=== PATIENT | female | born 1985 | race Caucasian/White ===

== ENCOUNTER 2017-10-28 07:15 | Inpatient (IN) | payer OTHER ==
[2017-10-28] MEDS: DEXTROSE 5%-LACTATED RINGERS 1,000 ML IV SCH (07:45)
[2017-10-28 07:56] LABS: BASO % 0.2 % (0-2.0); EOS % 0.3 % (0-4.5); HEMATOCRIT 39.9 % (32.4-45.2); HEMOGLOBIN 13.2 GM/dL (10.7-15.3); LYMPH % 20.8 % (8-40); MCH 26.8 pg (25.7-33.7); MEAN CELL VOLUME 81.2 fl (80-96); MEAN PLT VOLUME 10.3 fl (7.5-11.1); MONO % 4.4 % (3.8-10.2); NEUT % 74.3 % (42.8-82.8); PLATELET COUNT 191 K/MM3 (134-434); RBC 4.91 M/mm3 (3.60-5.2); RDW 15.1 % (11.6-15.6); WHITE BLOOD COUNT 9.6 K/mm3 (4.0-10.0)
[2017-10-28 08:10] LABS: ANION GAP 8 (8-16); BLOOD UREA NITROGEN 18 mg/dL (7-18); CALCIUM 8.3 mg/dL (8.5-10.1); CHLORIDE 108 mmol/L (98-107); CO2 22 mmol/L (21-32); CREATININE 0.6 mg/dL (0.55-1.02); GLUCOSE,RANDOM 94 mg/dL (74-106); POTASSIUM 4.5 mmol/L (3.5-5.1); SODIUM 138 mmol/L (136-145)
[2017-10-28 08:20] LABS: INR 0.94 (0.82-1.09); PROTHROMBIN TIME (PATIENT) 10.6 SEC (9.98-11.88)
[2017-10-28 08:23] LABS: ACTIVATED PTT 26.9 SECONDS (26.9-34.4)
--- NOTE | 2017-10-28 08:28 | HP ---
Past Medical History - Primary Care Physician PCP:: Luciano Mauro - Admission Chief Complaint: 39 weeks, labor History of Present Illness: 32 yo f , edc by sono 11/04 17 39 weeks, c/o of contractions, cx 4cm, 80 vx -2 mi, fhr cat 1, irregular contraction, History Source: Patient Limitations to Obtaining History: Language Barrier - Past Medical History ...: 3 ...Para: 2 ...Term: 2 ...Spon : 0 ...Induced : 0 ...EDC by Dates: 11/04/17 ...EDC by Sono: 11/04/17 Heme/Onc: Yes: Anemia - Past Surgical History Hx Myomectomy: No Hx Transabdominal Cerclage: No - Smoking History Have you smoked in the past 12 months: No - Alcohol/Substance Use Hx Alcohol Use: No - Social History Usual Living Arrangement: Yes: With Spouse History of Recent Travel: No Home Medications - Allergies Allergies/Adverse Reactions: Allergies Allergy/AdvReac Type Severity Reaction Status Date / Time No Known Allergies Allergy Verified 10/28/17 07:25 - Home Medications Home Medications: Ambulatory Orders Ferrous Sulfate [Iron] 325 mg PO DAILY 10/27/17 Vit Calc,Iron,Folic [ Vitamins] 1 each PO DAILY 10/27/17 Review of Systems - Review of Systems Constitutional: reports: No Symptoms Eyes: reports: No Symptoms HENT: reports: No Symptoms Neck: reports: No Symptoms Cardiovascular: reports: No Symptoms Respiratory: reports: No Symptoms Gastrointestinal: reports: No Symptoms Genitourinary: reports: No Symptoms Breasts: reports: No Symptoms Reported Musculoskeletal: reports: No Symptoms Integumentary: reports: No Symptoms Neurological: reports: No Symptoms Endocrine: reports: No Symptoms Hematology/Lymphatic: reports: No Symptoms Psychiatric: reports: No Symptoms Physical Exam - Maternity Constitutional: Yes: Well Nourished, No Distress, Calm Eyes: Yes: WNL, Conjunctiva Clear, EOM Intact HENT: Yes: WNL, Atraumatic, Normocephalic Neck: Yes: WNL, Supple, Trachea Midline Cardiovascular: Yes: WNL, Regular Rate and Rhythm Breast(s): Yes: WNL - Abdominal Exam/OB Fundal Height: 40 Number of Fetuses: Single Presentation: Vertex Contractions: Yes Regularity: Irregular Intensity: Moderate Monitor Mode: External Heart Rate [facility]: [facility] Category: I Accelerations: Uniform Decelerations: None - Vaginal Exam/OB Vaginal Bleediing: No Amniotic Membrane Status: Intact Presentation: Vertex/Position Station: -2 - Physical Exam Musculoskeletal: Yes: WNL Extremities: Yes: WNL Edema: LLE: Trace, RLE: Trace Deep Tendon Reflex Grade: Normal +2 ...Motor Strength: WNL Psychiatric: Yes: WNL - Labs Lab Results: CBC, BMP 10/28/17 07:30 10/28/17 07:30 Hemorrhage Risk Assessment - Risk Factors Medium Risk Factors: Yes: Multiple gestation Risk Score: 1 Risk Level: Medium Risk Problem List - Problems (1) with 39 completed weeks gestation Code(s): Z3A.39 - 39 WEEKS GESTATION OF (2) First stage of labor established Code(s): XNG5704 - Assessment/Plan admit, fhm., pain management . pitocin stimulation, if irregular contraction
[2017-10-28] MEDS ORDERED: BUTORPHANOL TARTRATE 1 MG/ML VIAL IVPUSH ONE (08:31)
[2017-10-28] MEDS ORDERED: PROMETHAZINE HCL 25 MG/1 ML VIAL IVPUSH ONE (08:31)
[2017-10-28 08:34] VITALS: BMI 29.9
[2017-10-28] MEDS ORDERED: OXYTOCIN 30 UNITS in 0.9% NS 30 UNIT/500 ML INFUS.BAG IVPB SCH (08:45)
[2017-10-28] MEDS ORDERED: OXYTOCIN 30 UNITS in 0.9% NS 30 UNIT/500 ML INFUS.BAG IVPB ONE (08:53)
[2017-10-28] MEDS ORDERED: BUTORPHANOL TARTRATE 1 MG/ML VIAL ONE ×2 (13:50→13:51)
[2017-10-28] MEDS ORDERED: PROMETHAZINE HCL 25 MG/1 ML VIAL ONE (13:51)
[2017-10-28] MEDS ORDERED: OXYTOCIN 20 UNITS in 0.9% NS 20 UNIT/1,000 ML INFUS.BAG IV ONE (15:23)
--- NOTE | 2017-10-28 15:27 | PN ---
Progress Note (short form) - Note Progress Note: cx 8 cm, 100 vx 0 arom, clear ,fhr cat 1, contraction q 2 min Problem List - Problems (1) with 39 completed weeks gestation Code(s): Z3A.39 - 39 WEEKS GESTATION OF (2) First stage of labor established Code(s): EEH9357 -
[2017-10-28] MEDS ORDERED: BENZOCAINE 20% 57 GM BOTTLE TP PRN (17:10)
[2017-10-28] MEDS ORDERED: BISACODYL 10 MG SUPP.RECT RC PRN (17:10)
[2017-10-28] MEDS ORDERED: METHYLERGONOVINE MALEATE 0.2 MG/1 ML AMP IM PRN (17:10)
[2017-10-28] MEDS ORDERED: WITCH HAZEL 50% (TUCKS) 40 PAD/JAR PAD TP PRN (17:10)
[2017-10-28] MEDS ORDERED: BENZOCAINE 28 GM HEMORRHOIDAL OINTMENT TP PRN (17:10)
[2017-10-28] MEDS ORDERED: OXYTOCIN 20 UNITS in 0.9% NS 20 UNIT/1,000 ML INFUS.BAG IV SCH (17:15)
[2017-10-28] MEDS ORDERED: D5W-LR W/ 20 UNITS OXYTOCIN 1,000 ML IV SCH (17:15)
[2017-10-28] MEDS ORDERED: ACETAMINOPHEN 325 MG TABLET (FP) ONE (18:32)
[2017-10-28] MEDS ORDERED: IBUPROFEN 600 MG TABLET (FP) PO ONE (18:32)
[2017-10-28] MEDS: IBUPROFEN 600 MG TABLET (FP) PO PRN (18:36)
[2017-10-28] MEDS: FERROUS SO4 325 MG TABLET (FP) PO SCH (18:37)
[2017-10-28] MEDS: ACETAMINOPHEN 325 MG TABLET (FP) PO PRN (18:38)
--- NOTE | 2017-10-29 07:09 | PN ---
Post Progress Note - Subjective Subjective: 32 yo Para 3 status post vaginal delivery, seen and evaluated. Doing well. Post Day: 1 Type of Delivery: Vital Signs: Vital Signs Temperature 98.6 F 10/29/17 06:00 Pulse Rate 71 10/29/17 06:00 Respiratory Rate 18 10/29/17 06:00 Blood Pressure 115/65 10/29/17 06:00 O2 Sat by Pulse Oximetry (%) 100 10/28/17 18:35 Breast Exam: Yes: Soft Uterus: Yes: Fundus Firm Abdomen/GI: Yes: Abdomen soft, Tolerating PO Lochia: Yes: Rubra Lochia, amount: Moderate Extremities: Yes: Calves non-tender Perineum: Yes: Intact Activity: Ambulating - Labs Labs: CBC WBC 9.6 K/mm3 (4.0-10.0) 10/28/17 07:30 RBC 4.91 M/mm3 (3.60-5.2) D 10/28/17 07:30 Hgb 13.2 GM/dL (10.7-15.3) D 10/28/17 07:30 Hct 39.9 % (32.4-45.2) D 10/28/17 07:30 MCV 81.2 fl (80-96) 10/28/17 07:30 MCH 26.8 pg (25.7-33.7) 10/28/17 07:30 MCHC 33.0 g/dl (32.0-36.0) 10/28/17 07:30 RDW 15.1 % (11.6-15.6) 10/28/17 07:30 Plt Count 191 K/MM3 (134-434) 10/28/17 07:30 MPV 10.3 fl (7.5-11.1) 10/28/17 07:30 Neutrophils % 74.3 % (42.8-82.8) 10/28/17 07:30 Lymphocytes % 20.8 % (8-40) 10/28/17 07:30 Monocytes % 4.4 % (3.8-10.2) 10/28/17 07:30 Eosinophils % 0.3 % (0-4.5) 10/28/17 07:30 Basophils % 0.2 % (0-2.0) 10/28/17 07:30 Problem List - Problems (1) Status post normal vaginal delivery Code(s): [id number] - Assessment/Plan Status post vaginal delivery Stable Continue routine care
[2017-10-29] MEDS: ACETAMINOPHEN 325 MG TABLET (FP) PO PRN ×3 (07:56→20:47)
[2017-10-29] MEDS: FERROUS SO4 325 MG TABLET (FP) PO SCH ×2 (07:56→17:10)
[2017-10-29] MEDS: IBUPROFEN 600 MG TABLET (FP) PO PRN ×3 (07:57→20:46)
[2017-10-29 08:01] LABS: BASO % 0.2 % (0-2.0); EOS % 0.6 % (0-4.5); HEMOGLOBIN 10.9 GM/dL (10.7-15.3); LYMPH % 20.5 % (8-40); MCH 27.3 pg (25.7-33.7); MEAN CELL VOLUME 82.7 fl (80-96); MEAN PLT VOLUME 10.7 fl (7.5-11.1); MONO % 5.3 % (3.8-10.2); NEUT % 73.4 % (42.8-82.8); PLATELET COUNT 157 K/MM3 (134-434); RBC 3.98 M/mm3 (3.60-5.2); RDW 15.7 % (11.6-15.6); WHITE BLOOD COUNT 10.5 K/mm3 (4.0-10.0)
[2017-10-29] MEDS: DEXTROSE 5%-LACTATED RINGERS 1,000 ML IV SCH (09:26)
[2017-10-29] MEDS: PRENATAL VITAMINS W/ FOLIC ACID TABLET (FP) PO SCH (09:28)
[2017-10-29] MEDS ORDERED: SENNOSIDES/DOCUSATE COMBO (SENNA PLUS) TABLET (UD) PO PRN (22:00)
[2017-10-30] MEDS: FERROUS SO4 325 MG TABLET (FP) PO SCH (08:26)
[2017-10-30] MEDS: ACETAMINOPHEN 325 MG TABLET (FP) PO PRN ×2 (08:26→13:27)
[2017-10-30] MEDS: IBUPROFEN 600 MG TABLET (FP) PO PRN ×2 (08:26→13:27)
[2017-10-30 09:14] VITALS: BP 125/79; PULSE 66; TEMP 98.8
[2017-10-30] MEDS: PRENATAL VITAMINS W/ FOLIC ACID TABLET (FP) PO SCH (10:08)
--- NOTE | 2017-10-30 10:21 | DS ---
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: Vital Signs Temperature 98.8 F 10/30/17 09:05 Pulse Rate 66 10/30/17 09:05 Respiratory Rate 20 10/30/17 09:05 Blood Pressure 125/79 10/30/17 09:05 O2 Sat by Pulse Oximetry (%) 100 10/28/17 18:35 Constitutional: Yes: Well Nourished Eyes: Yes: Conjunctiva Clear HENT: Yes: Atraumatic Neck: Yes: Supple Cardiovascular: Yes: Regular Rate and Rhythm Respiratory: Yes: Regular Gastrointestinal: Yes: Normal Bowel Sounds External Genitalia: Yes: Normal Vaginal Exam: Yes: Normal Uterus: Yes: Normal ....Post : Yes: Uterus firm, Moderate lochia serosa Breast(s): Yes: WNL Neurological: Yes: Alert, Oriented ...Motor Strength: WNL Psychiatric: Yes: Alert, Oriented Labs: CBC, BMP 10/29/17 07:15 10/28/17 07:30 Delivery - Delivery Type of Anesthesia: Local Episiotomy/Laceration: 1st degree EBL (cc): 300 Delivery, Single - Stages of Labor Date 1st Stage Initiatied: 10/28/17 Time 1st Stage Initiated: 03:00 Date 2nd Stage Initiated: 10/28/17 Time 2nd Stage Initiated: 16:25 Date of Delivery: 10/28/17 Time of Delivery: 16:46 Time Placenta Delivered: 16:49 - 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 Gender: Female Weight: 6 lb 9 oz Position: Left, OA Total Hours ROM (Hrs/Mins): 1hr 31min - 1 Minute Total Score: 9 5 Minutes Total Score: 9 - [place] Feeding Plan Initial Plan: Elected not to breastfeed exclusively throughout hospitalization Discharge Summary Reason For Visit: LABOR Current Active Problems First stage of labor established (Acute) with 39 completed weeks gestation (Acute) Status post normal vaginal delivery (Acute) Procedures: Principal: Normal spontaneous vaginal delivery Hospital Course: Routine care Condition: Good - Instructions Diet, Activity, Other Instructions: Regular diet No douching, no sexual intercourse x 6 weeks F/U in clinic in 6 weeks Disposition: HOME - Home Medications Comprehensive Discharge Medication List: Ambulatory Orders Ferrous Sulfate [Iron] 325 mg PO DAILY 10/27/17 Vit Calc,Iron,Folic [ Vitamins] 1 each PO DAILY 10/27/17
== END 2017-10-30 14:10 | disposition home or self-care (01) | DRG 560 ==
LOC: JLDR 07:15 → J3W 19:30
PROVIDERS: ADMIT Obstetrics & Gynecology; ATTEND Obstetrics & Gynecology
PROC: 10E0XZZ Delivery of Products of Conception, External Approach (ICD-10-PCS; principal; 2017-10-28)
PROC: 0W8NXZZ Division of Female Perineum, External Approach (ICD-10-PCS; 2017-10-28)
PROC: 0HQ9XZZ Repair Perineum Skin, External Approach (ICD-10-PCS; 2017-10-28)
DX: O70.0 First degree perineal laceration during delivery (principal); Z3A.39 39 weeks gestation of pregnancy; Z37.0 Single live birth
CPT/HCPCS: 36415; 59409; 80048; 85025; 85610; 85730; 86593; 86850; 86900; 86901

== ENCOUNTER 2018-03-03 06:10 | Day surgery (SDC) | payer OTHER ==
[2018-03-03 06:26] VITALS: BMI 26.2
--- NOTE | 2018-03-03 06:30 | PDOC ---
History of Present Illness - General Stated Complaint: ABD PAIN Time Seen by Provider: 03/03/18 06:21 - History of Present Illness Initial Comments: 03/03/18 06:25 CHIEF COMPLAINT: abdominal pain HISTORY OF PRESENT ILLNESS: 33 yo F (recently delivered Oct 2017) presents to ED with abdominal pain radiating to back since 5 am. Patient reports normal bowel movement this morning. Denies fever, chills, nausea, vomiting, diarrhea. LMP earlier this month. Denies any urinary pain, frequency, or bleeding. PAST MEDICAL HISTORY: hx of gall stones FAMILY HISTORY: Denies SOCIAL HISTORY: Denies tobacco, alcohol, illicit drug use. SURGICAL HISTORY: Denies ALLERGIES: meperidine REVIEW OF SYSTEMS General/Constitutional: Denies fever or chills. Denies weakness, weight change. HEENT: Denies change in vision. Denies ear pain or discharge. Denies sore throat. Cardiovascular: Denies chest pain or shortness of breath. Respiratory: Denies cough, wheezing, or hemoptysis. Gastrointestinal: Abdominal pain since this morning. Denies nausea, vomiting, diarrhea or constipation. Denies rectal bleeding. Genitourinary: Denies dysuria, frequency, or change in urination. Musculoskeletal: Denies joint or muscle swelling or pain. Denies neck or back pain. Skin and breasts: Denies rash or easy bruising. PHYSICAL EXAM General Appearance: Well-appearing, appropriately dressed. No apparent distress. HEENT: EOMI, PERRLA, normal ENT inspection, normal voice, TMs normal, pharynx normal. No conjunctival pallor. No photophobia, scleral icterus. Respiratory/Chest: Lungs CTAB. No shortness of breath, chest tenderness, respiratory distress, accessory muscle use. No crackles, rales, rhonchi, stridor , wheezing, dullness Cardiovascular: RRR. S1, S2. Gastrointestinal/Abdominal: Tenderness to RUQ and epigastrum. Normal bowel sounds. Abdomen soft, non-distended. No organomegaly, pulsatile mass, guarding , hernia, hepatomegaly, splenomegaly. Musculoskeletal/Extremities: Normal inspection. FROM of all extremities, normal capillary refill. Pelvis Stable. No CVA tenderness. No tenderness to extremities, pedal edema, swelling, erythema or deformity. Integumentary: Appropriate color, dry, warm. 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 Fully oriented, alert. Appropriate mood/affect. Motor strength 5/5. No appreciable EOM palsy, facial droop or sensory deficit. Past History - Past Medical History Allergies/Adverse Reactions: Allergies Allergy/AdvReac Type Severity Reaction Status Date / Time meperidine [From Demerol] Allergy Intermediate Verified 03/03/18 06:26 Home Medications: Ambulatory Orders Ferrous Sulfate [Iron] 325 mg PO DAILY 10/27/17 Vit Calc,Iron,Folic [ Vitamins] 1 each PO DAILY 10/27/17 Ibuprofen [Motrin -] 400 mg PO QID PRN #120 tablet 03/04/18 Asthma: No Cancer: No Cardiac Disorders: No COPD: No Diabetes: No GI Disorders: Yes (gallstones) HTN: No Seizures: No Thyroid Disease: No - Suicide/Smoking/Psychosocial Hx Smoking History: Never smoked Have you smoked in the past 12 months: No Hx Alcohol Use: No Drug/Substance Use Hx: No Hx Substance Use Treatment: No ED Treatment Course - LABORATORY CBC & Chemistry Diagram: 03/04/18 06:40 03/04/18 06:40 Medical Decision Making - Medical Decision Making 03/03/18 06:29 33 yo F presents to ED with abdominal pain radiating to back. -labs, urine 03/03/18 06:30 Case discussed in detail with oncoming emergency provider including history, physical exam and ancillary studies. In brief, this patient is being seen in the ED for a chief complaint of: I have completed the initial assessment interview note and have ordered the following labs: CBC, CMP, lipase, urine, US I have reviewed the following results: nothing Pending results: everything Plan for disposition as follows: pending Oncoming BEATRIZ Samuel has assumed care for the patient and will complete the evaluation and treatment. *DC/Admit/Observation/Transfer Diagnosis at time of Disposition: Biliary colic, Elevated liver enzymes - Discharge Dispostion Disposition: HOME Condition at time of disposition: Improved - Prescriptions - Referrals - Patient Instructions - Post Discharge Activity
--- NOTE | 2018-03-03 06:35 | PDOC ---
*Physical Exam - Vital Signs Last Vital Signs Temp Pulse Resp BP Pulse Ox 98.2 F 76 18 121/86 100 03/03/18 06:20 03/03/18 06:20 03/03/18 06:20 03/03/18 06:20 03/03/18 06:20 ED Treatment Course - LABORATORY CBC & Chemistry Diagram: 03/04/18 06:40 03/04/18 06:40 Medical Decision Making - Medical Decision Making 03/03/18 06:34 agree with care from LARISA Hope *DC/Admit/Observation/Transfer Diagnosis at time of Disposition: Biliary colic, Elevated liver enzymes - Discharge Dispostion Disposition: HOME Condition at time of disposition: Improved - Prescriptions - Referrals - Patient Instructions - Post Discharge Activity
[2018-03-03 06:48] LABS: BASO % 0.5 % (0-2.0); EOS % 2.3 % (0-4.5); HEMOGLOBIN 13.2 GM/dL (10.7-15.3); LYMPH % 31.8 % (8-40); MCH 27.9 pg (25.7-33.7); MCHC 34.6 g/dl (32.0-36.0); MEAN CELL VOLUME 80.6 fl (80-96); MEAN PLT VOLUME 8.7 fl (7.5-11.1); MONO % 6.9 % (3.8-10.2); NEUT % 58.5 % (42.8-82.8); PLATELET COUNT 259 K/MM3 (134-434); RBC 4.72 M/mm3 (3.60-5.2); RDW 12.7 % (11.6-15.6)
--- NOTE | 2018-03-03 07:11 | PDOC ---
*Physical Exam - Vital Signs Last Vital Signs Temp Pulse Resp BP Pulse Ox 98.2 F 76 18 121/86 100 03/03/18 06:20 03/03/18 06:20 03/03/18 06:20 03/03/18 06:20 03/03/18 06:20 - Physical Exam Comments: 03/03/18 07:48 GENERAL: Well developed, well nourished. Awake and alert. No acute distress. HEENT: Normocephalic, atraumatic. PERRLA, EOMI. No conjunctival pallor. Sclera are non- icteric. Moist mucous membranes. Oropharynx is clear. NECK: Supple. Full ROM. No JVD. Carotid pulses 2+ and symmetric, without bruits. No thyromegaly. No lymphadenopathy. CARDIOVASCULAR: Regular rate and rhythm. No murmurs, rubs, or gallops. Distal pulses are 2+ and symmetric. PULMONARY: No evidence of respiratory distress. Lungs clear to auscultation bilaterally. No wheezing, rales or rhonchi. ABDOMINAL: TTP of the epigastric region/RUQ. Soft. Non-distended. No rebound or guarding. No organomegaly. Normoactive bowel sounds. MUSCULOSKELETAL Normal range of motion at all joints. No bony deformities or tenderness. No CVA tenderness. EXTREMITIES: No cyanosis. No clubbing. No edema. No calf tenderness. SKIN: Warm and dry. Normal capillary refill. No rashes. No jaundice. NEUROLOGICAL: Alert, awake, appropriate. Cranial nerves 2-12 intact. No deficits to light touch and temperature in face, upper extremities and lower extremities. No motor deficits in the in face, upper extremities and lower extremities. Normoreflexic in the upper and lower extremities. Normal speech. Toes are down- going bilaterally. Gait is normal without ataxia. PSYCHIATRIC: Cooperative. Good eye contact. Appropriate mood and affect. ED Treatment Course - LABORATORY CBC & Chemistry Diagram: 03/03/18 06:20 03/03/18 06:27 Medical Decision Making - Medical Decision Making 03/03/18 07:51 Sign out was received from Anne Hope at 7 AM. Patient is a 33-year-old female with past medical history of gallstones, , who presents to the emergency department today with right upper quadrant pain. On exam patient with tenderness to the epigastric region, positive King sign. Patient pending ultrasound of the right upper quadrant at this time. Patient pending lab work. LMP was 2 weeks ago. 03/03/18 09:41 Lab work shows no leukocytosis at this time. Electrolytes are grossly within normal limits. This time liver enzymes are double. Ultrasound shows evidence of cholelithiasis without cholecystitis. Liver is grossly enlarged and fatty at this time. Repeat exam patient still with pain despite medication. I suspect that the gallbladder does need to be removed at this time. We'll speak with surgery on-call. 03/03/18 10:[address] Flowers. Given repeat biliary colic with stones on US, agrees that pt needs her gall bladder removed. Will take pt. Consult placed to [facility] for ASU as pt has no PCP. Pt to go to OR today. 03/03/18 11:21 [facility] with Dr. Flowers and agrees with ASU placement. Pt NPO since last night. *DC/Admit/Observation/Transfer Diagnosis at time of Disposition: Biliary colic, Elevated liver enzymes - Discharge Dispostion Condition at time of disposition: Stable Decision to Admit order: Yes - Referrals - Patient Instructions - Post Discharge Activity
[2018-03-03 07:25] LABS: ALBUMIN 3.6 g/dl (3.4-5.0); ALK PHOS 77 U/L (45-117); ANION GAP 10 (8-16); BILIRUBIN,TOTAL 0.4 mg/dL (0.2-1.0); BLOOD UREA NITROGEN 21 mg/dL (7-18); CALCIUM 8.5 mg/dL (8.5-10.1); CHLORIDE 105 mmol/L (98-107); CO2 25 mmol/L (21-32); CREATININE 0.8 mg/dL (0.55-1.02); GLUCOSE,RANDOM 122 mg/dL (74-106); POTASSIUM 3.8 mmol/L (3.5-5.1); SGOT/AST 77 U/L (15-37); SGPT/ALT 85 U/L (12-78); SODIUM 140 mmol/L (136-145); TOT PROT 7.9 g/dl (6.4-8.2)
[2018-03-03 09:08] LABS: HCG,QUALITATIVE URINE NEGATIVE
[2018-03-03 09:10] LABS: URINE APPEARANCE CLEAR; URINE BILIRUBIN NEGATIVE (<2.0 mg/dL); URINE COLOR LTYELLOW; URINE GLUCOSE (UA) NEGATIVE (NEGATIVE); URINE KETONE NEGATIVE (NEGATIVE); URINE LEUK ESTERASE NEGATIVE (NEGATIVE); URINE NITRITE NEGATIVE (NEGATIVE); URINE PROTEIN NEGATIVE (NEGATIVE); URINE UROBILINOGEN NEGATIVE mg/dL (0.2-1.0)
[2018-03-03] MEDS ORDERED: SODIUM CHLORIDE 1,000 ML IV STA (09:32)
[2018-03-03] MEDS ORDERED: ONDANSETRON 4 MG/2 ML VIAL IVPUSH ONE (09:32)
[2018-03-03] MEDS ORDERED: KETOROLAC TROMETHAMINE 15 MG/ML VIAL IM ONE (09:32)
[2018-03-03] MEDS ORDERED: KETOROLAC TROMETHAMINE 15 MG/ML VIAL ONE (10:05)
[2018-03-03] MEDS ORDERED: ONDANSETRON 4 MG/2 ML VIAL ONE ×3 (10:05→19:28)
[2018-03-03] MEDS ORDERED: LACTATED RINGERS SOLUTION 1,000 ML/1,000 ML INFUS.BAG IV SCH (11:15)
--- NOTE | 2018-03-03 13:32 | CONSULT ---
- Consultation REQUESTING PROVIDER: Erma HARLEY CONSULT REQUEST: We have been asked to surgically evaluate this patient for ( specify). 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 PMHx: none PSHx: none Home Medications Medication Instructions Recorded Ferrous Sulfate [Iron] 325 mg PO DAILY 10/27/17 Vit Calc,Iron,Folic 1 each PO DAILY 10/27/17 [ Vitamins] Allergies Allergy/AdvReac Type Severity Reaction Status Date / Time meperidine [From Demerol] Allergy Intermediate Verified 03/03/18 06:26 PHYSICAL EXAM: GENERAL: Awake, alert, and fully oriented, in slight acute distress stating pain is 7-8/10 in severity. HEAD: Normal with no signs of trauma. EYES: sclera anicteric, conjunctiva clear. NECK: Normal ROM, supple without lymphadenopathy, JVD, or masses. ABDOMEN: Soft, tender in RUQ and epigastrium, not distended, normoactive bowel sounds, voluntary guarding, no rebound, no masses. No organomegaly. No hernias MUSCULOSKELETAL: Normal ROM at all joints. No bony deformities or tenderness. No CVA tenderness. UPPER EXTREMITIES: 2+ pulses, warm, well-perfused. No cyanosis. Cap refill <2 seconds. No peripheral edema. LOWER EXTREMITIES: 2+ pulses, warm, well-perfused. No calf tenderness. No peripheral edema. NEUROLOGICAL: Normal speech, gait not observed. PSYCH: Cooperative. Good eye contact. Appropriate mood and affect. SKIN: Warm, dry, normal turgor, no rashes or lesions noted. Vital Signs Temperature 98.6 F 03/03/18 11:53 Pulse Rate 73 03/03/18 11:53 Respiratory Rate 16 03/03/18 11:53 Blood Pressure 120/75 03/03/18 11:53 O2 Sat by Pulse Oximetry (%) 98 03/03/18 11:53 Lab Results WBC 10.0 K/mm3 (4.0-10.0) 03/03/18 06:20 RBC 4.72 M/mm3 (3.60-5.2) 03/03/18 06:20 Hgb 13.2 GM/dL (10.7-15.3) 03/03/18 06:20 Hct 38.0 % (32.4-45.2) D 03/03/18 06:20 MCV 80.6 fl (80-96) 03/03/18 06:20 MCHC 34.6 g/dl (32.0-36.0) 03/03/18 06:20 RDW 12.7 % (11.6-15.6) D 03/03/18 06:20 Plt Count 259 K/MM3 (134-434) D 03/03/18 06:20 Sodium 140 mmol/L (136-145) 03/03/18 06:27 Potassium 3.8 mmol/L (3.5-5.1) 03/03/18 06:27 Chloride 105 mmol/L (98-107) 03/03/18 06:27 Carbon Dioxide 25 mmol/L (21-32) 03/03/18 06:27 Anion Gap 10 (8-16) 03/03/18 06:27 BUN 21 mg/dL (7-18) H 03/03/18 06:27 Creatinine 0.8 mg/dL (0.55-1.02) 03/03/18 06:27 Random Glucose 122 mg/dL (74-106) H 03/03/18 06:27 Calcium 8.5 mg/dL (8.5-10.1) 03/03/18 06:27 US reviewed-cholelithiasis w/o cholecystitis and no biliary tract dilatation IMP:biloiary coloc; cholelithiasis PLAN: Lap mel possible open; r/b/t/a/'s d/w the patient in [place] and consent obtained w/ aid of [employer]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 Anthony Stubbs MD FACS
[2018-03-03] MEDS ORDERED: SODIUM CHLORIDE 1,000 ML IV SCH ×2 (14:15→18:37)
--- NOTE | 2018-03-03 14:32 | HP ---
[employer] foreign language interpreter # [id number] CHIEF COMPLAINT: abdominal pain PCP: none HISTORY OF PRESENT ILLNESS: This is a 33 year old female with no significant PMHx (post 4 months), who presented to the ED with abdominal pain since 5:15am. The patient denies any nausea, vomiting, chest pain, diarrhea, headache, dizziness, urinary symptoms. ER course was notable for: (1) Abd US: cholelithiasis, hepatomegaly and diffuse fatty infiltration of the liver (2) Temp 98.2, pulse 76, BP 121/86, resp 18, O2 100% on RA (3) AST 77, ALT 85 Recent Travel: denies PAST MEDICAL HISTORY: denies PAST SURGICAL HISTORY: denies Social History: Smoking: denies Alcohol: denies Drugs: denies Family History: Allergies meperidine [From Demerol] Allergy (Intermediate, Verified 03/03/18 06:26) HOME MEDICATIONS: Home Medications Medication Instructions Recorded Ferrous Sulfate [Iron] 325 mg PO DAILY 10/27/17 Vit Calc,Iron,Folic 1 each PO DAILY 10/27/17 [ Vitamins] REVIEW OF SYSTEMS CONSTITUTIONAL: Absent: fever, chills, diaphoresis, generalized weakness, malaise, loss of appetite, weight change HEENT: Absent: rhinorrhea, nasal congestion, throat pain, throat swelling, difficulty swallowing, mouth swelling, ear pain, eye pain, visual changes CARDIOVASCULAR: Absent: chest pain, syncope, palpitations, irregular heart rate, lightheadedness , peripheral edema RESPIRATORY: Absent: cough, shortness of breath, dyspnea with exertion, orthopnea, wheezing, stridor, hemoptysis GASTROINTESTINAL: Abdominal pain that began at 5:15am this morning. Absent: abdominal distension, nausea, vomiting, diarrhea, constipation, melena, hematochezia GENITOURINARY: Absent: dysuria, frequency, urgency, hesitancy, hematuria, flank pain, genital pain MUSCULOSKELETAL: Absent: myalgia, arthralgia, joint swelling, back pain, neck pain SKIN: Absent: rash, itching, pallor HEMATOLOGIC/IMMUNOLOGIC: Absent: easy bleeding, easy bruising, lymphadenopathy, frequent infections ENDOCRINE: Absent: unexplained weight gain, unexplained weight loss, heat intolerance, cold intolerance NEUROLOGIC: Absent: headache, focal weakness or paresthesias, dizziness, unsteady gait, seizure, mental status changes, bladder or bowel incontinence PSYCHIATRIC: Absent: anxiety, depression, suicidal or homicidal ideation, hallucinations. PHYSICAL EXAMINATION Vital Signs - 24 hr 03/03/18 03/03/18 06:20 11:53 Temperature 98.2 F 98.6 F Pulse Rate 76 Pulse Rate [ 73 Left Apical] Respiratory 18 16 Rate Blood Pressure 121/86 Blood Pressure 120/75 [Left Arm] O2 Sat by Pulse 100 98 Oximetry (%) GENERAL: Awake, alert, and fully oriented, in no acute distress. HEAD: Normal with no signs of trauma. EYES: Pupils equal, round and reactive to light, extraocular movements intact, sclera anicteric, conjunctiva clear. No lid lag. EARS, NOSE, THROAT: Ears normal, nares patent, oropharynx clear without exudates. Moist mucous membranes. NECK: Normal range of motion, supple without lymphadenopathy, JVD, or masses. LUNGS: Breath sounds equal, clear to auscultation bilaterally. No wheezes, and no crackles. No accessory muscle use. HEART: Regular rate and rhythm, normal S1 and S2 without murmur, rub or gallop. ABDOMEN: Mild epigastric tenderness. Soft, not distended, normoactive bowel sounds, no guarding, no rebound, no masses. No hepatomegaly or splenomegaly. MUSCULOSKELETAL: Normal range of motion at all joints. No bony deformities or tenderness. No CVA tenderness. UPPER EXTREMITIES: 2+ pulses, warm, well-perfused. No cyanosis. No clubbing. No peripheral edema. LOWER EXTREMITIES: 2+ pulses, warm, well-perfused. No calf tenderness. No peripheral edema. NEUROLOGICAL: Cranial nerves II-XII intact. Normal speech. PSYCHIATRIC: Cooperative. Good eye contact. Appropriate mood and affect. SKIN: Warm, dry, normal turgor, no rashes or lesions noted, normal capillary refill. Laboratory Results - last 24 hr 03/03/18 03/03/18 03/03/18 06:20 06:20 06:27 WBC 10.0 RBC 4.72 Hgb 13.2 Hct 38.0 D MCV 80.6 MCH 27.9 MCHC 34.6 RDW 12.7 D Plt Count 259 D MPV 8.7 D Absolute Neuts (auto) 5.8 Neutrophils % 58.5 D Lymphocytes % 31.8 D Monocytes % 6.9 Eosinophils % 2.3 D Basophils % 0.5 Nucleated RBC % 0 Sodium 140 Potassium 3.8 Chloride 105 Carbon Dioxide 25 Anion Gap 10 BUN 21 H Creatinine 0.8 Creat Clearance w eGFR > 60 Random Glucose 122 H Calcium 8.5 Total Bilirubin 0.4 AST 77 H ALT 85 H Alkaline Phosphatase 77 Total Protein 7.9 Albumin 3.6 Lipase 223 Urine Color Urine Appearance Urine pH Ur Specific [place] Urine Protein Urine Glucose (UA) Urine Ketones Urine Blood Urine Nitrite Urine Bilirubin Urine Urobilinogen Ur Leukocyte Esterase Urine HCG, Qual 03/03/18 08:39 WBC RBC Hgb Hct MCV MCH MCHC RDW Plt Count MPV Absolute Neuts (auto) Neutrophils % Lymphocytes % Monocytes % Eosinophils % Basophils % Nucleated RBC % Sodium Potassium Chloride Carbon Dioxide Anion Gap BUN Creatinine Creat Clearance w eGFR Random Glucose Calcium Total Bilirubin AST ALT Alkaline Phosphatase Total Protein Albumin Lipase Urine Color Ltyellow Urine Appearance Clear Urine pH 6.0 Ur Specific [place] 1.018 Urine Protein Negative Urine Glucose (UA) Negative Urine Ketones Negative Urine Blood Negative Urine Nitrite Negative Urine Bilirubin Negative Urine Urobilinogen Negative Ur Leukocyte Esterase Negative Urine HCG, Qual Negative Assessment: This is a 33 year old female with no significant PMHx (post 4 months), who presented to the ED with abdominal pain since 5:15am. Plan: 1) Cholelithiasis, biliary colic - For lap mel today - IV fluids - Pain management - NPO for surgery - Appreciate surgery consult 2) Post 4 months, breast feeding - Discussed with sales support consultant, will bring a breast pump for the patient 3) F/E/N: - Monitor electrolytes - IV fluids - NPO 4) Prophylaxis: - OOB ambulating - SCDs bilaterally 5) Dispo: - Likely discharge within 24 hours CODE STATUS: FULL CODE Visit type - Emergency Visit Emergency Visit: Yes Care time: The patient presented to the Emergency Department on the above date and was hospitalized for further evaluation of their emergent condition. - New Patient This patient is new to me today: Yes Date on this admission: 03/03/18 - Critical Care Critical Care patient: No Hospitalist Screening - Colonoscopy Questionnaire Colonoscopy Questionnaire: Colonoscopy Questionnaire
[2018-03-03] MEDS ORDERED: PROMETHAZINE HCL 25 MG/1 ML VIAL IVPUSH PRN (16:04)
[2018-03-03] MEDS ORDERED: ONDANSETRON 4 MG/2 ML VIAL IVPUSH PRN ×2 (16:04→18:37)
[2018-03-03] MEDS ORDERED: ROCURONIUM BROMIDE 50 MG/5 ML VIAL ONE (16:11)
[2018-03-03] MEDS ORDERED: PROPOFOL 20 ML ONE (16:11)
[2018-03-03] MEDS ORDERED: MIDAZOLAM HCL 2 MG/2 ML SINGLE DOSE VIAL ONE (16:12)
[2018-03-03] MEDS ORDERED: LIDOCAINE HCL/PF 2% SDV 5ML VIAL ONE (16:12)
[2018-03-03] MEDS ORDERED: LACTATED RINGERS SOLUTION 1,000 ML IV SCH ×2 (16:15→18:37)
[2018-03-03] MEDS ORDERED: ceFAZolin SODIUM 1 GM VIAL ONE (16:21)
[2018-03-03] MEDS ORDERED: ceFAZolin SODIUM 1 GM VIAL IVPB ONE (16:31)
[2018-03-03] MEDS ORDERED: DEXAMETHASONE SOD PHOSPHATE 4 MG/1 ML VIAL ONE (16:39)
[2018-03-03] MEDS ORDERED: KETOROLAC TROMETHAMINE 30 MG/1 ML VIAL ONE (17:55)
[2018-03-03] MEDS ORDERED: NEOSTIGMINE METHYLSULFATE 0.5 MG/ML - 10 ML MDV ONE (17:57)
[2018-03-03] MEDS ORDERED: GLYCOPYRROLATE 0.2 MG/1 ML VIAL ONE (17:57)
[2018-03-03] MEDS ORDERED: BUPIVACAINE HCL/PF 0.5% (5MG/ML) 10 ML VIAL IJ ONE (18:13)
[2018-03-03] MEDS ORDERED: ACETAMINOPHEN 1000 MG/100 ML VIAL (NON FORMULARY) IVPB ONE ×2 (18:15→18:37)
[2018-03-03] MEDS: ACETAMINOPHEN 1000 MG/100 ML VIAL (NON FORMULARY) IVPB PRN (18:25)
[2018-03-03] MEDS ORDERED: KETOROLAC TROMETHAMINE 10 MG TABLET PO PRN (18:37)
[2018-03-03] MEDS ORDERED: PROMETHAZINE HCL 25 MG/1 ML VIAL IVPB PRN (18:37)
[2018-03-03] MEDS ORDERED: ACETAMINOPHEN INJECTION 100 ML IVPB ONE (18:43)
--- NOTE | 2018-03-03 18:45 | OP ---
Operative Note - Note: Operative Date: 03/03/18 Pre-Operative Diagnosis: Cholecystitis, Cholelithiasis Operation: laparoscopic cholecystitis Post-Operative Diagnosis: Same as Pre-op Surgeon: Anthony Stubbs Medical Resident: Rox Hunter Anesthesiologist/JACQUARD PLATE MAKER: Johnathan Cooley Anesthesia: General Specimens Removed: gallbladder Estimated Blood Loss (mls): 20 Fluid Volume Replaced (mls): 800 Operative Report Dictated: Yes
--- NOTE | 2018-03-03 18:46 | SURG ---
Surgery Channel Machine Operator Note Channel Machine Operator: Rox Hunter PA-C Date of Service: 03/03/18 Diagnosis: cholecysitits, cholelithiasis Procedure: laparoscopic cholecystectomy I was present for the entirety of the operative procedure. For further detail, please refer to operative report. Visit type - Case Type Case Type: ED Admission - Emergency Emergency Visit: Yes Care time: The patient presented to the Emergency Department on the above date and was hospitalized for further evaluation of their emergent condition. - New patient This patient is new to me today: Yes Date on this admission: 03/03/18
[2018-03-04] MEDS: ACETAMINOPHEN 1000 MG/100 ML VIAL (NON FORMULARY) IVPB PRN (01:37)
[2018-03-04 07:41] LABS: HEMATOCRIT 35.8 % (32.4-45.2); HEMOGLOBIN 12.1 GM/dL (10.7-15.3); MCH 27.7 pg (25.7-33.7); MCHC 33.9 g/dl (32.0-36.0); MEAN CELL VOLUME 81.9 fl (80-96); MEAN PLT VOLUME 9.3 fl (7.5-11.1); PLATELET COUNT 240 K/MM3 (134-434); RBC 4.37 M/mm3 (3.60-5.2); RDW 12.7 % (11.6-15.6); WHITE BLOOD COUNT 9.7 K/mm3 (4.0-10.0)
[2018-03-04 08:57] LABS: CHLORIDE 107 mmol/L (98-107); POTASSIUM 4.3 mmol/L (3.5-5.1); SODIUM 142 mmol/L (136-145)
[2018-03-04 09:04] LABS: ALK PHOS 86 U/L (45-117); ANION GAP 9 (8-16); BILIRUBIN,TOTAL 0.4 mg/dL (0.2-1.0); BLOOD UREA NITROGEN 9 mg/dL (7-18); CALCIUM 8.3 mg/dL (8.5-10.1); CO2 26 mmol/L (21-32); CREATININE 0.6 mg/dL (0.55-1.02); GLUCOSE,RANDOM 113 mg/dL (74-106); MAGNESIUM 1.9 mg/dL (1.8-2.4); PHOSPHOROUS 4.8 mg/dL (2.5-4.9); SGOT/AST 149 U/L (15-37); SGPT/ALT 299 U/L (12-78); TOT PROT 6.6 g/dl (6.4-8.2)
--- NOTE | 2018-03-04 09:07 | PN ---
Progress Note (short form) - Note Progress Note: Post op day#1.S/P Laproscopic cholecystectomy under Ga uneventful.Patient stable.No any anesthesia related problem.Ptient Dc from the anesthesia care.
[2018-03-04] MEDS ORDERED: PT OWN MED DRAWER 7, Y5N ONE (09:15)
[2018-03-04] MEDS ORDERED: [UNRECOGNIZED DRUG - OTHER] PO SCH (10:00)
[2018-03-04] MEDS ORDERED: PRENATAL VIT CALC IRON FOLIC PO SCH (10:00)
[2018-03-04] MEDS ORDERED: FERROUS SO4 325 MG TABLET (FP) PO SCH (10:00)
[2018-03-04] MEDS ORDERED: PATIENT'S OWN MEDICATION (NON-FORMULARY) (Ferrous Sulfate [Iron] 325 MG) PO SCH (10:00)
[2018-03-04] MEDS ORDERED: PRENATAL VITAMINS W/ FOLIC ACID TABLET (FP) PO SCH (10:00)
--- NOTE | 2018-03-04 10:40 | PN ---
Progress Note (short form) - Note Progress Note: Attending Surgeon POD #1 No c/o e/f some port site tenderness; tolerated diet and voided VSS AF abdo-soft; flat and non tender; port sites c/d/i WBC nl; h/h ok; bili and alk phos nl IMp: doing well PLAN: Discharge home to office f/u; d/w patient and her and her in [employer]. Anthony Stubbs MD FACS
[2018-03-04 10:46] VITALS: BP 103/66; PULSE 93; TEMP 97.8
[2018-03-04] MEDS ORDERED: ACETAMINOPHEN 325 MG TABLET (FP) PO PRN (10:55)
--- NOTE | 2018-03-04 10:56 | DS ---
Physical Examination Vital Signs: Vital Signs Temperature 97.8 F 03/04/18 08:15 Pulse Rate 93 H 03/04/18 08:15 Respiratory Rate 18 03/04/18 08:15 Blood Pressure 103/66 03/04/18 08:15 O2 Sat by Pulse Oximetry (%) 100 03/03/18 20:00 Labs: CBC, BMP 03/04/18 06:40 03/04/18 06:40 Discharge Summary Reason For Visit: ELEVATED LIVER ENZYMES,BILIARY COLIC Current Active Problems Biliary colic (Acute) Elevated liver enzymes (Acute) - Instructions Diet, Activity, Other Instructions: Dr. Stubbs Discharge Instructions Dear NELDA CORNELIUS, Post Operative Instructions Physical activity Resume your normal everyday activity as tolerated no heavy lifting or exercise until seen by your surgeon. You may walk unlimited amounts of and climb stairs. You may resume driving the car when you feel safe and comfortable behind the wheel. Wound care If you have a bandage, leave it on, and keep dry for 48 - 72 hours. After that time discard the outer bandage. If there are tapes on the skin under the outer bandage, leave them in place. They will peel off in the next 7 to 10 days. Do Not peel them off. You may shower 2 days after surgery. If there are tapes present on the skin, they can get wet. Diet There are no dietary restrictions. Eat healthy, high-fiber foods. Drink 6 to 8 glasses of liquid each day. This will assist in keeping your bowels are regular. Pain management You may take Tylenol or acetaminophen or Ibuprofen (for example, Motrin, Advil etc.) Any pain prescription medication ordered should be taken as prescribed for moderate to severe pain. Please discuss which medications are safe to take while breast feeding with your OBGYN physician. Call Dr. Stubbs for any of the following: Severe pain not relieved by medication Fever of 101 or higher Excessive bleeding or drainage on dressing Inability to urinate If you experience chest pain or shortness of breath please seek emergency treatment immediately. Call the office at [phone] for a post operative appointment in 7 - 10 days. Disposition: HOME - Home Medications Comprehensive Discharge Medication List: Ambulatory Orders Ferrous Sulfate [Iron] 325 mg PO DAILY 10/27/17 Vit Calc,Iron,Folic [ Vitamins] 1 each PO DAILY 10/27/17
[2018-03-04] MEDS ORDERED: IBUPROFEN 400 MG TABLET (FP) PO PRN (10:58)
--- NOTE | 2018-03-04 11:49 | OP ---
DATE OF OPERATION: 03/03/2018 PREOPERATIVE DIAGNOSIS: Cholelithiasis and biliary colic. POSTOPERATIVE DIAGNOSIS: Cholelithiasis and biliary colic. PROCEDURE: Laparoscopic cholecystectomy. SURGEON: Anthony Stubbs MD DOCUMENTATION ANALYST: Rox Hunter PA-C ANESTHESIA: General. OPERATIVE FINDINGS: There were multiple small stones in the gallbladder. There was no evidence of acute cholecystitis. The rest of the findings were unremarkable. PROCEDURE: induction of general anesthesia, the patient's abdomen was prepped with ChloraPrep and draped in sterile fashion. Time-out was taken and then pneumoperitoneum established above the umbilicus using a Veress needle. Once 15 mm of intra-abdominal pressure was obtained, a 5-mm port was placed at the umbilicus. Additional lateral 5-mm ports and a subxiphoid 12-mm port were placed and laparoscopy carried out, and the previously noted findings were observed. The gallbladder was placed on cephalad and lateral traction, and dissection was begun at the neck of the gallbladder where the peritoneum was opened medially and laterally using blunt and sharp dissection and electrocautery. Dissection continued in the triangle of Calot where the cystic duct was identified coursing from the neck of the gallbladder distally to the common bile duct. It was dissected proximally and distally for length. Similarly, the artery was similarly identified and dissected. A critical view of safety was taken, and then the cystic duct divided proximally and distally using Endo Frederick after it was clipped twice proximally and distally with large hemoclips. The artery was similarly clipped and divided. Hemostasis was checked for and noted to be good and then the gallbladder was removed from the liver bed in a retrograde fashion using electrocautery. Prior to removal from the edge of the liver, hemostasis was again verified and then the gallbladder removed from the edge of the liver, placed in an EndoCatch, and brought out through the subxiphoid port. Pneumoperitoneum was reestablished, hemostasis verified again, and then the 5-mm lateral and subxiphoid ports were removed under laparoscopic vision without evidence of bleeding from the port sites. The umbilical port was removed and the pneumoperitoneum evacuated. All port sites were infiltrated with 0.5% Marcaine and the skin edges closed with 4-0 Biosyn in a subcuticular and continuous fashion. Steri-Strips and Band-Aid dressings were placed and the procedure terminated at this point and the patient aroused from general anesthesia and transferred to the post anesthesia care unit in stable condition awake and alert. ESTIMATED BLOOD LOSS: 15 mL. REPLACEMENTS: Crystalloid. DRAINS: None. SPECIMENS: Gallbladder and contents to pathology. I, Anthony Stubbs, was physically present in the operating room from the time the patient was placed on the operating room table until she was transferred to the post anesthesia care unit in [employer]. MD RHODA Mckeon/[id number] MTDD
--- NOTE | 2018-03-07 17:37 | PATH ---
Surgical Pathology Report Patient Name: JOCELYNN GUEVARA [facility]. Rec. #: [id number] /Age/Gender: 1985 (Age: 33) / F Account: [id number] Location: AMBULATORY SURG Taken: 03/03/2018 Received: 03/06/2018 Reported: 03/07/2018 Physicians: MD Esvin Galindo, Specimen(s) Received GALLBLADDER Clinical History Cholecystitis, cholelithiasis Final Diagnosis GALLBLADDER, LAPAROSCOPIC CHOLECYSTECTOMY: CHRONIC CHOLECYSTITIS, CHOLESTEROLOSIS, AND FOCAL ADENOMATOUS HYPERPLASIA. Electronically Signed Jocelynn White M.D. Gross Description Received in formalin, labeled "gallbladder," is a 7.8 x 2.3 x 1.6 cm. gallbladder with a 0.2 cm. in length portion of cystic duct attached. The outer surface is leroy green with a focal defect and varies from smooth to shaggy. The lumen contains green, tenacious bile. There are no choleliths identified within the lumen or within the container. The mucosa is green with gold cholesterol stippling. The wall of the gallbladder is focally thickened at the fundus with submucosal cystic spaces identified. The wall of the gallbladder ranges from 0.1-0.4 cm in thickness. [employer] Developer sections are submitted in 2 cassettes with the fundus in cassette 2. 03/06/201803/06/2018
== END 2018-03-04 13:43 | disposition home or self-care (01) ==
LOC: JER 06:10 → JASUSAT 11:06 → SUATTDRO 11:06 → J8W 20:10 → JASUSAT 03-04 13:43
PROVIDERS: ATTEND Registered Nurse
PROC: 0FT44ZZ Resection of Gallbladder, Percutaneous Endoscopic Approach (ICD-10-PCS; principal; 2018-03-03 17:15)
DX: K80.80 Other cholelithiasis without obstruction (principal); K80.50 Calculus of bile duct without cholangitis or cholecystitis without obstruction
CPT/HCPCS: 36415; 76705-TC; 80053; 81003; 83690; 83735; 84100; 84703; 85025; 85027; 87086; 88304-TC; 94760; 99284-25; J0131; J7030